=== PATIENT | female | born 1975 | race African-American/Black ===

== ENCOUNTER 2016-09-21 05:21 | Inpatient (IN) | payer SELFPAY ==
[2016-09-21] VITALS (16 sets, daily range): BP systolic 133–190; BP diastolic 72–108
[~2016-09-21] VITALS: Ht 157.5 cm; Wt 78.0 kg
[~2016-09-21 05:21] MED LIST: PROAIR HFA8.5 GM INH
[2016-09-21] MEDS ORDERED: ASPIRIN 81 MG TAB.CHEW PO ONE (07:00)
--- NOTE | 2016-09-21 07:13 | PHYS DOC ---
Past Medical History Past Medical History: Hypertension Past Surgical History: Alcohol Use: Occasionally Drug Use: None Adult General Chief Complaint Chief Complaint: COUGH HPI HPI Patient is a 41 year old female who presents with complaint of chest pain and high blood pressure. Patient states that she has been having chest pains over the past 2 weeks. The patient was seen in the emergency department on August and treated for uncontrolled high blood pressure. Patient states that she recently moved to this area from [place] and she has been working on getting back on her blood pressure medication. Patient states that she has not been able to fill her prescription due to lack of money. Patient states that her pain is substernal and pressure-like. On my examination, the patient rated her pain as 7 out of 10. Patient has not taken any medications to help with her symptoms. Patient denies associated fever that states that she has been having cough. Patient states that the cough has been present over the past 2 weeks. Denies nausea or vomiting. Review of Systems Review of Systems Constitutional: Denies fever or chills [] Eyes: Denies change in visual acuity, redness, or eye pain [] HENT: Denies nasal congestion or sore throat [] Respiratory: Cough, shortness of breath [] Cardiovascular: Chest pain, denies edema [] GI: Denies abdominal pain, nausea, vomiting, bloody stools or diarrhea [] : Denies dysuria or hematuria [] Musculoskeletal: Denies back pain or joint pain [] Integument: Denies rash or skin lesions [] Neurologic: Denies headache, focal weakness or sensory changes [] Endocrine: Denies polyuria or polydipsia [] Current Medications Current Medications Current Medications Medications (Trade) Dose Ordered Sig/Hernan Start Time Stop Time Status Last Admin Dose Admin Acetaminophen (Tylenol) 650 mg PRN Q4HRS PRN 09/21/16 08:00 09/22/16 07:59 Aspirin 324 mg 324 mg 1X ONCE 09/21/16 07:00 09/21/16 07:05 DC 09/21/16 07:42 324 MG Fentanyl Citrate 50 mcg 50 mcg PRN Q2HR PRN 09/21/16 08:00 09/22/16 07:59 Nitroglycerin/ Dextrose (Nitroglycerin Drip) 250 ml @ As Directed STK-MED ONCE 09/21/16 07:35 09/21/16 07:36 DC Ondansetron HCl (Zofran) 4 mg PRN Q8HRS PRN 09/21/16 08:00 09/22/16 07:59 Sodium Chloride (Iv Sodium Chloride 0.9% 1000ml Bag) 1,000 ml @ 0 mls/hr Q0M 09/21/16 07:47 09/22/16 07:46 Allergies Allergies Allergies Coded Allergies Type Severity Reaction Last Updated Verified No Known Drug Allergies 08/22/16 No Physical Exam Physical Exam Constitutional: Alert, afebrile, appears in mild discomfort. [] HENT: Normocephalic, atraumatic, bilateral external ears normal, oropharynx moist, no oral exudates, nose normal. [] Eyes: PERRLA, EOMI, conjunctiva normal, no discharge. [] Neck: Normal range of motion, no tenderness, supple, no stridor. [] Cardiovascular: Tachycardia, regular rhythm, no murmur [] Lungs & Thorax: Mildly restricted air movement bilaterally, rales bilaterally, no wheezes [] Abdomen: Bowel sounds normal, soft, no tenderness, no masses, no pulsatile masses. [] Skin: Warm, dry, no erythema, no rash. [] Back: No tenderness, no CVA tenderness. [] Extremities: No tenderness, no cyanosis, no clubbing, ROM intact, no edema. [] Neurologic: Alert and oriented X 3, normal motor function, normal sensory function, no focal deficits noted. [] Current Patient Data Vital Signs Vital Signs Date Time Temp Pulse Resp B/P Pulse Ox O2 Delivery O2 Flow Rate FiO2 09/21/16 06:40 98.3 98 20 210/114 100 Room Air 98.3 Lab Values Laboratory Tests Test 09/21/16 06:30 09/21/16 07:15 09/21/16 07:33 White Blood Count 8.3x10^3/uL (4.0-11.0) Red Blood Count 3.36x10^6/uL (3.50-5.40) L Hemoglobin 7.6g/dL (12.0-15.5) L Hematocrit 23.4% (36.0-47.0) L Mean Corpuscular Volume 70fL (79-100) L Mean Corpuscular Hemoglobin 23pg (25-35) L Mean Corpuscular Hemoglobin Concent 33g/dL (31-37) Red Cell Distribution Width 20.1% (11.5-14.5) H Platelet Count 258x10^3/uL (140-400) Neutrophils (%) (Auto) 61% (31-73) Lymphocytes (%) (Auto) 25% (24-48) Monocytes (%) (Auto) 10% (0-9) H Eosinophils (%) (Auto) 4% (0-3) H Basophils (%) (Auto) 1% (0-3) Neutrophils # (Auto) 5.1x10^3uL (1.8-7.7) Lymphocytes # (Auto) 2.1x10^3/uL (1.0-4.8) Monocytes # (Auto) 0.8x10^3/uL (0.0-1.1) Eosinophils # (Auto) 0.3x10^3/uL (0.0-0.7) Basophils # (Auto) 0.0x10^3/uL (0.0-0.2) Platelet Estimate Pending Sodium Level 138mmol/L (136-145) Potassium Level 3.8mmol/L (3.5-5.1) Chloride Level 104mmol/L (98-107) Carbon Dioxide Level 25mmol/L (21-32) Anion Gap 9 (6-14) Blood Urea Nitrogen 18mg/dL (7-20) Creatinine 1.1mg/dL (0.6-1.0) H Estimated GFR (Cockcroft-Gault) 66.9 Glucose Level 105mg/dL (70-99) H Calcium Level 9.3mg/dL (8.5-10.1) Magnesium Level 2.0mg/dL (1.8-2.4) Total Bilirubin 0.3mg/dL (0.2-1.0) Direct Bilirubin 0.1mg/dL (0.0-0.2) Aspartate Amino Transferase (AST) 27U/L (15-37) Alanine Aminotransferase (ALT) 27U/L (14-59) Alkaline Phosphatase 52U/L (46-116) Creatine Kinase 89U/L (26-192) Creatine Kinase MB (Mass) 0.9ng/mL (0.0-3.6) Creatine Kinase MB Relative Index 1.0% (0-4) Troponin I Quantitative 0.309ng/mL (0.000-0.055) FN-Klg-X-Type Natriuretic Peptide 2520pg/mL (0-124) H Total Protein 7.5g/dL (6.4-8.2) Albumin 3.3g/dL (3.4-5.0) L POC Urine HCG, Qualitative Hcg negative (Negative) Hcg negative (Negative) Laboratory Tests 09/21/16 06:30 Laboratory Tests 09/21/16 06:30 EKG EKG Interpreted by me: Heart rate 95, sinus rhythm, prolonged QT interval, T-wave inversions in the lateral leads and in V4 through V6, voltage criteria for left ventricular hypertrophy, no acute ST elevations or depressions [] Radiology/Procedures Radiology/Procedures [facility] [address] [place] [address] IMAGING REPORT Signed PATIENT: LUCIANO KATE ACCOUNT: [id number] : 1975 LOCATION: ER AGE: 41 SEX: F EXAM STATUS: REG ER ORD. PHYSICIAN: NATHANIEL WHEATLEY MD REASON: chest pain PROCEDURE: PORTABLE CHEST 1V Single view chest History:chest pain . An AP view of the chest is submitted. Comparison: 08/22/2016. Findings: There is no significant infiltrate, pleural effusion, or pneumothorax. There is again mild perihilar opacity. The pericardial cardiac silhouette is within normal limits in size. The trachea is in the midline. No acute osseous abnormality is identified. Impression: No acute abnormality is identified. There is again mild perihilar opacity which can be associated with atypical or viral infectious etiologies or reactive airway disease. DICTATED and SIGNED BY: REJI VU MD DATE: 09/21/16 0743 CC: NATHANIEL WHEATLEY MD; NO PCP ~ [] Course & Med Decision Making Course & Med Decision Making Pertinent Labs and Imaging studies reviewed. (See chart for details) Patient was started on a nitroglycerin drip and given oral aspirin in the emergency department due to chest pain and critically elevated blood pressure. Patient found to have elevated troponin which is likely due to malignant hypertension, however acute coronary syndrome cannot be ruled out at this time. The patient will be admitted for further care and evaluation. I spoke with Dr. Ricardo who accepted care patient in hospital. A consult was placed to Dr. Sethi to follow with patient in hospital. Critical care time excluding procedures: 40 minutes Dragon Disclaimer Dragon Disclaimer This electronic medical record was generated, in whole or in part, using a voice recognition dictation system. Departure Departure Impression: Primary Impression: Malignant hypertension Additional Impressions: Acute coronary syndrome Noncompliance with medications Microcytic anemia Disposition: ADMITTED INPATIENT Admitting Physician: Salomón Ricardo Condition: GUARDED Referrals: NO PCP (PCP) Problem Qualifiers NATHANIEL WHEATLEY MD Sep 21, 2016 07:13
[2016-09-21 07:19] LABS: BASO % 1 % (0-3); EOS % 4 % (0-3); HEMATOCRIT 23.4 % (36.0-47.0); HEMOGLOBIN 7.6 g/dL (12.0-15.5); LYMPH # 2.1 x10^3/uL (1.0-4.8); LYMPH % 25 % (24-48); MEAN CORPUSCULAR HEMOGLOBIN 23 pg (25-35); MEAN CORPUSCULAR HGB CONC 33 g/dL (31-37); MEAN CORPUSCULAR VOLUME 70 fL (79-100); MONO % 10 % (0-9); NEUT % 61 % (31-73); PLATELET COUNT 258 x10^3/uL (140-400); RED BLOOD COUNT 3.36 x10^6/uL (3.50-5.40); RED CELL DISTRIBUTION WIDTH 20.1 % (11.5-14.5); WHITE BLOOD COUNT 8.3 x10^3/uL (4.0-11.0)
[2016-09-21 07:29] LABS: CALCIUM 9.3 mg/dL (8.5-10.1); CREATININE 1.1 mg/dL (0.6-1.0); GFR 66.9; POTASSIUM 3.8 mmol/L (3.5-5.1)
[2016-09-21] MEDS ORDERED: NITROGLYCERIN PREMIX 250 ML IV ONE (07:35)
[2016-09-21 07:38] LABS: ALBUMIN 3.3 g/dL (3.4-5.0); DIRECT BILIRUBIN 0.1 mg/dL (0.0-0.2); TOTAL BILIRUBIN 0.3 mg/dL (0.2-1.0); TOTAL PROTEIN 7.5 g/dL (6.4-8.2)
[2016-09-21 07:46] LABS: CKMB MASS 0.9 ng/mL (0.0-3.6)
[2016-09-21] MEDS ORDERED: IV NORMAL SALINE 1000ML BAG 1,000 ML IV SCH (07:47)
[2016-09-21] MEDS: NITROGLYCERIN PREMIX 250 ML IV PRN ×2 (07:47→08:30)
--- NOTE | 2016-09-21 07:47 | RAD ---
Single view chest History:chest pain . An AP view of the chest is submitted. Comparison: 08/22/2016. Findings: There is no significant infiltrate, pleural effusion, or pneumothorax. There is again mild perihilar opacity. The pericardial cardiac silhouette is within normal limits in size. The trachea is in the midline. No acute osseous abnormality is identified. Impression: No acute abnormality is identified. There is again mild perihilar opacity which can be associated with atypical or viral infectious etiologies or reactive airway disease.
[2016-09-21] MEDS ORDERED: ACETAMINOPHEN 325 MG TABLET. PO PRN (08:00)
[2016-09-21 08:03] LABS: BILIRUBIN,URINE NEGATIVE (NEG); GLUCOSE,URINE NEGATIVE (NEG); NITRITE,URINE NEGATIVE (NEG); PROTEIN,URINE NEGATIVE (NEG-TRACE); UROBILINOGEN,URINE 0.2 mg/dL (0.2 mg/dL)
--- NOTE | 2016-09-21 08:08 | ACF ---
Admit Criteria Forms Admit Criteria Forms Admit Criteria Forms CHEST PAIN Clinical Indications for Admission to Inpatient Care (Place 'X' for any and all applicable criteria): Admission is indicated for chest pain and ANY ONE of the following(1)(2)(3)(4)(5 ): [X]I. Angina with acute coronary syndrome (Also use Myocardial Infarction or Angina guideline) [ ]II. Hemodynamic instability [ ]III. Angina needing acute intervention as indicated by ALL of the following( 11)(12): [ ]a) Unstable angina is present as indicated by angina that is ANY ONE of the following: [ ]i) New onset [ ]ii) Nocturnal [ ]iii) Prolonged at rest [ ]iv) Progressive [ ]b) Angina warrants acute intervention as indicated by ANY ONE of the following: [ ]i) Recurrent angina (e.g, not responding as previously to treatment) [ ]ii) Angina at rest or with low-level activities despite initial medical therapy [ ]iii) New or presumably new ST-segment depression on ECG [ ]iv) Signs or symptoms of heart failure (eg, dyspnea, pulmonary edema) [ ]v) New or worsening mitral regurgitation [ ]vi) Hemodynamic instability [ ]vii) Dangerous arrhythmia (eg, sustained ventricular tachycardia) [ ]viii) History of percutaneous coronary intervention within 6 months [ ]ix) History of coronary artery bypass graft surgery [ ]x) AKILAH risk score of 2 or greater[A] [ ]xi) History of Diabetes(14) [ ]xii) High-risk cardiac ischemia findings on noninvasive testing (e.g, echocardiogram, treadmill testing, nuclear scan) [ ]xiii) Chronic renal insufficiency (ie, estimated GFR less than 60 mL/min/1.732m) [ ]xiv) Left ventricular ejection fraction less than 40% [ ]IV. Evidence of WI (eg, cardiac biomarkers positive, ST-segment elevation on ECG) also use Myocardial Infarction Criteria Form. [ ]V. Pulmonary edema [ ]. Respiratory distress [ ]VII. Chest pain indicative of serious diagnosis other than coronary artery disease (eg, aortic dissection) [ ]VIII. Contraindications and/or Inappropriate clinical situations for Observational Care in patients with Chest Pain, when ANY ONE of the following is required: [ ]a) Patient with risk factor for pulmonary embolism, acute coronary syndrome and myocardial infarction (18) [ ]b) Patient with Pulmonary embolism require an average LOS of 4.3 days, therefore emergency department observation management is inappropriate 18,23 [ ]c) Painful condition/s in the elderly, have the highest rate of recidivism after emergency department observation management (10.8%) 20,21,22 [ ]d) Elevated cardiac biomarker requires intensive and exhaustive care (19) [ ]IX. General contraindications and/or Inappropriate clinical situations for Observational Care in patients with Chest Pain, when ANY ONE of the following is required: [ ]a) Prediction of prolongation of LOS based on ANY ONE of the following may be considered as a contraindication for observational care 2, 3, 4, 5, 6, 7, 8, 9, 10, 11 [ ]i) Age > 65 yrs. [ ]ii) Patient arriving by ambulance [ ]iii) Patient with high acuity [ ]iv) Patient requiring vital sign monitoring [ ]v) Patient on IV medication [ ]b) Systolic blood pressures 180mmHg 3,12 [ ]c) Patient with altered mental status including delirium and other alteration of consciousness, (3) [ ]d) Patient whose discharge disposition will be to a alf home or rehabilitation home should not be managed in Emergency Department Observation Unit. CMS rule requires 3 days hospital stay before such placement. 3,13 [ ]e) Patient with failure to thrive due to broad array of etiologies 3,16,17 [ ]f) Inability to ambulate 3,14 Extended stay beyond goal length of stay may be needed for (1)(28): [ ]a) Specific condition diagnosed after evaluation (eg, pulmonary embolism, aortic dissection) [ ]b) Unstable angina [ ]c) Continued suspicion of acute coronary syndrome with inability to complete needed cardiac evaluation (eg, patient clinically unable to undergo stress testing) [ ]d) Myocardial infarction (Contents from ANGINA and CHEST PAIN clinical indications for admission to inpatient care have been integrated in this form) The original [employer] content created by [employer] has been revised. The portions of the content which have been revised are identified through the use of italic text or in bold, and [facility] [employer] has neither reviewed nor approved the modified material. All other unmodified content is copyright [employer]. Please see references footnoted in the original [employer] edition 2016 LOUIS HAZEL Sep 21, 2016 08:08
[2016-09-21 08:22] LABS: BACTERIA,URINE MANY /HPF (0-FEW); RBC,URINE 0 /HPF (0-2); SQUAMOUS EPITHELIAL CELL,UR FEW /LPF
[2016-09-21] MEDS ORDERED: LABETALOL 20 MG/4 ML DISP.SYRIN. IVP ONE (10:00)
[2016-09-21 10:14] LABS: ANISOCYTOSIS PRESENT; HYPOCHROMIA PRESENT; MICROCYTOSIS PRESENT; PLT ESTIMATE ADEQUATE (ADEQUATE); POIKILOCYTOSIS PRESENT; TARGET CELLS PRESENT
--- NOTE | 2016-09-21 11:01 | PDOC2 ---
ASHLEY PATEL TEXTILE CONSERVATOR 09/21/16 1101: CARDIAC CONSULT DATE OF CONSULT Date of Consult DATE: 09/21/16 TIME: 10:47 REASON FOR CONSULT Reason for Consult: malignant hypertension HISTORY OF PRESENT ILLNESS HISTORY OF PRESENT ILLNESS Ms Bashir is a 41 year old female with a history of hypertension, heart failure and anemia. She recently moved here from [place] and reports having been off her antihypertensives for quite a long time due to inability to afford them. She complains of a cough over the last two weeks but denies fever or chills. She complains of chest discomfort with cough and abdominal discomfort with cough as well. she was seen in the hospital in August for hypertension but reports she was unable to afford medications so did not fill Rx. Blood pressure today 220/133 mmHg. She denies any neurological symptoms or chest discomfort at rest. . PAST MEDICAL HISTORY Past Medical History hypertension, heart failure, dysmenorrhea, anemia PAST SURGICAL HISTORY Past Surgical History: FAMILY HISTORY Family History CHF in her father SOCIAL HISTORY Social History 1 ppd smoker, denies ETOH or illicit drugs CURRENT MEDICATIONS CURRENT MEDICATIONS Current Medications Medications (Trade) Dose Ordered Sig/Hernan Route PRN Reason Start Time Stop Time Status Last Admin Dose Admin Aspirin 324 mg 324 mg 1X ONCE PO 09/21/16 07:00 09/21/16 07:05 DC 09/21/16 07:42 Nitroglycerin/ Dextrose (Nitroglycerin Drip) 250 ml @ 0 mls/hr CONT PRN IV SEE I/O RECORD 09/21/16 07:00 09/21/16 08:30 Labetalol HCl (Normodyne) 20 mg 1X ONCE IVP 09/21/16 10:00 09/21/16 10:04 DC 09/21/16 10:11 ALLERGIES ALLERGIES: Coded Allergies: No Known Drug Allergies (Unverified , 08/22/16) ROS Review of System as per HPI or negative PHYSICAL EXAM General: Alert, Oriented X3, Cooperative, No acute distress HEENT: Atraumatic, EOMI Lungs: Other (decreased bases bilaterally with occ crackle) Heart: Regular rate, Normal S1, Normal S2, Other Abdomen: Normal bowel sounds, Soft, No tenderness Extremities: No cyanosis, No edema, Normal pulses Neuro: Normal speech, Strength at 5/5 X4 ext Psych/Mental Status: Mental status NL, Mood NL VITALS VITALS Vital Signs Date Time Temp Pulse Resp B/P Pulse Ox O2 Delivery O2 Flow Rate FiO2 09/21/16 10:11 90 212/116 09/21/16 08:15 24 100 Room Air 09/21/16 06:40 98.3 98.3 LABS Lab: Laboratory Tests Test 09/21/16 06:30 09/21/16 07:10 09/21/16 07:15 09/21/16 07:33 White Blood Count 8.3x10^3/uL (4.0-11.0) Red Blood Count 3.36x10^6/uL (3.50-5.40) Hemoglobin 7.6g/dL (12.0-15.5) Hematocrit 23.4% (36.0-47.0) Mean Corpuscular Volume 70fL (79-100) Mean Corpuscular Hemoglobin 23pg (25-35) Mean Corpuscular Hemoglobin Concent 33g/dL (31-37) Red Cell Distribution Width 20.1% (11.5-14.5) Platelet Count 258x10^3/uL (140-400) Neutrophils (%) (Auto) 61% (31-73) Lymphocytes (%) (Auto) 25% (24-48) Monocytes (%) (Auto) 10% (0-9) Eosinophils (%) (Auto) 4% (0-3) Basophils (%) (Auto) 1% (0-3) Neutrophils # (Auto) 5.1x10^3uL (1.8-7.7) Lymphocytes # (Auto) 2.1x10^3/uL (1.0-4.8) Monocytes # (Auto) 0.8x10^3/uL (0.0-1.1) Eosinophils # (Auto) 0.3x10^3/uL (0.0-0.7) Basophils # (Auto) 0.0x10^3/uL (0.0-0.2) Platelet Estimate Adequate (ADEQUATE) Hypochromasia Present Poikilocytosis Present Anisocytosis Present Microcytosis Present Target Cells Present Sodium Level 138mmol/L (136-145) Potassium Level 3.8mmol/L (3.5-5.1) Chloride Level 104mmol/L (98-107) Carbon Dioxide Level 25mmol/L (21-32) Anion Gap 9 (6-14) Blood Urea Nitrogen 18mg/dL (7-20) Creatinine 1.1mg/dL (0.6-1.0) Estimated GFR (Cockcroft-Gault) 66.9 Glucose Level 105mg/dL (70-99) Calcium Level 9.3mg/dL (8.5-10.1) Magnesium Level 2.0mg/dL (1.8-2.4) Total Bilirubin 0.3mg/dL (0.2-1.0) Direct Bilirubin 0.1mg/dL (0.0-0.2) Aspartate Amino Transf (AST/SGOT) 27U/L (15-37) Alanine Aminotransferase (ALT/SGPT) 27U/L (14-59) Alkaline Phosphatase 52U/L (46-116) Creatine Kinase 89U/L (26-192) Creatine Kinase MB (Mass) 0.9ng/mL (0.0-3.6) Creatine Kinase MB Relative Index 1.0% (0-4) Troponin I Quantitative 0.309ng/mL (0.000-0.055) RW-Oxo-X-Type Natriuretic Peptide 2520pg/mL (0-124) Total Protein 7.5g/dL (6.4-8.2) Albumin 3.3g/dL (3.4-5.0) Urine Collection Type Unknown Urine Color Yellow Urine Clarity Clear Urine pH 6.0 Urine Specific Holcomb 1.020 Urine Protein Negativemg/dL (NEG-TRACE) Urine Glucose (UA) Negativemg/dL (NEG) Urine Ketones (Stick) Negativemg/dL (NEG) Urine Blood Negative (NEG) Urine Nitrite Negative (NEG) Urine Bilirubin Negative (NEG) Urine Urobilinogen Dipstick 0.2mg/dL (0.2 mg/dL) Urine Leukocyte Esterase Small (NEG) Urine RBC 0/HPF (0-2) Urine WBC 5-10/HPF (0-4) Urine Squamous Epithelial Cells Few/LPF Urine Bacteria Many/HPF (0-FEW) Bedside Urine HCG, Qualitative Hcg negative (Negative) Hcg negative (Negative) IMAGES IMAGES CXR - Impression: No acute abnormality is identified. There is again mild perihilar opacity which can be associated with atypical or viral infectious etiologies or reactive airway disease. EKG - sinus rhythm, LVH by voltage, non specific changes ASSESSMENT/PLAN ASSESSMENT/PLAN 1. accelerated hypertension - labetalol x 1 on NTG, add Coreg and HCTZ. Consider lisinopril if pressure remains elevated. Check echocardiogram. Consider renal arterial duplex for CÉSAR. 2. chest pain c/w musculoskeletal secondary to URI 3. elevated trop - no acute EKG changes. Likely secondary to accelerated hypertension. check echo and could consider MPI outpatient. 4. anemia - per PCP 5. tobaccoism - cessation encouraged 6. medical non compliance due to monetary issues. Attempt to keep antihypertensives to generic/affordable. refer to [facility] for outpatient follow up and med assistance. Problems: MARTITA HASSAN MD 09/21/16 1358: CARDIAC CONSULT ALLERGIES ALLERGIES: Coded Allergies: No Known Drug Allergies (Unverified , 08/22/16) ASSESSMENT/PLAN ASSESSMENT/PLAN Pt. seen and examined. 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 41 y.o woman with malignant HTN due to non-compliance and lack of insurance. on exam she has normal heart/lung tones. No bruits. Labs reviewed. Meds as noted above. If BP stable over next 12 hrs, then ok for DC. Problems: ASHLEY PATEL APRN Sep 21, 2016 11:01 MARTITA HASSAN MD Sep 21, 2016 13:58
[2016-09-21] MEDS ORDERED: NON FORMULARY ITEM (Albuterol Sulfate (Proair Hfa Inhaler) 1 PUFF) INH PRN (11:30)
[2016-09-21] MEDS ORDERED: ALBUTEROL SULFATE 2.5 MG/3 ML NEBU. NEB PRN (11:45)
[2016-09-21] MEDS: CARVEDILOL 6.25 MG TABLET PO SCH ×2 (12:05→19:01)
[2016-09-21] MEDS: HYDROCHLOROTHIAZIDE 25 MG TABLET PO SCH (12:05)
[2016-09-21] MEDS: AMLODIPINE BESYLATE 10 MG TABLET PO SCH (12:05)
--- NOTE | 2016-09-21 18:52 | EKG ---
[facility] [address] [place] [address] Test Date: 2016-09-21 Test Time: 06:46:48 Pat Name: LUCIANO KATE Department: Room: 205 1 Gender: F Shingle Trimmer: : 1975 Requested By: NATHANIEL WHEATLEY Order Number: [id number] Reading MD: Xiao Boles Measurements Intervals [place] Rate: 95 P: 63 MI: 140 QRS: 33 QRSD: 78 T: 121 QT: 404 QTc: 511 Interpretive Statements SINUS RHYTHM LEFT ATRIAL ABNORMALITY LVH WITH REPOLARIZATION ABNORMALITY PROLONGED QT ABNORMAL ECG RI6.01 No previous ECG available for comparison Electronically Signed On 09-22-2016 19:06:20 HELPER COORDINATOR by Xiao Boles
[2016-09-21] MEDS: FENTANYL PF 100 MCG/2 ML VIAL. IV PRN (20:30)
[2016-09-21] MEDS: ONDANSETRON PF 4 MG/2 ML VIAL. IV PRN (21:15)
[2016-09-21 23:35] LABS: % SAT IRON 6 % (15-34); IRON,SERUM 18 ug/dL (50-170)
[2016-09-22] VITALS (17 sets, daily range): BP systolic 136–186; BP diastolic 70–109
--- NOTE | 2016-09-22 05:25 | HP ---
ADMIT DATE: 09/21/2016 CHIEF COMPLAINT: Hypertension. HISTORY OF PRESENT ILLNESS: The patient is a pleasant 41-year-old female who quit taking her medications probably a year ago. She now presents with hypertensive urgency with pressures in the 200s. Her troponin is a little high. Discussed the case with the ER physician. We are going to admit her and get her pressures under control and consult Cardiology. PAST MEDICAL HISTORY: Noncompliance, hypertension. ALLERGIES: None. FAMILY HISTORY: Coronary artery disease. SOCIAL HISTORY: She does not drink, smoke or take drugs. MEDICATIONS: Reviewed, please refer to the MRAD. REVIEW OF SYSTEMS: GENERAL: No history of weight change, weakness or fevers. SKIN: No bruising, hair changes or rashes. EYES: No blurred, double or loss of vision. NOSE AND THROAT: No history of nosebleeds, hoarseness or sore throat. HEART: No history of palpitations, chest pain or shortness of breath on exertion. LUNGS: Denies cough, hemoptysis, wheezing or shortness of breath. GASTROINTESTINAL: Denies changes in appetite, nausea, vomiting, diarrhea or constipation. GENITOURINARY: No history of frequency, urgency, hesitancy or nocturia. NEUROLOGIC: Denies history of numbness, tingling, tremor or weakness. PSYCHIATRIC: No history of panic, anxiety or depression. ENDOCRINE: No history of heat or cold intolerance, polyuria or polydipsia. EXTREMITIES: Denies muscle weakness, joint pain, pain on walking or stiffness. PHYSICAL EXAMINATION: VITAL SIGNS: Temperature afebrile, pulse 74, respirations 18, blood pressure 221/133. GENERAL: She is alert, cooperative. HEART: Normal S1, S2. LUNGS: Clear. ABDOMEN: Soft, positive bowel sounds. EXTREMITIES: No edema. SKIN: No rashes. PSYCHIATRIC: She seems a little depressed. VASCULAR: Good capillary refill. ENDOCRINE: No thyromegaly. LYMPHATICS: No cervical nodes. HEMATOPOIETIC: No bruising. LABORATORY DATA: White count 8, hemoglobin 7, platelets 256. Electrolytes normal. Troponin 0.309. BNP 2520. ASSESSMENT AND PLAN: Acute on chronic systolic and diastolic heart failure probably secondary to noncompliance with severe accelerated hypertension with an elevated troponin and critical anemia. The patient is being admitted, we will consult Cardiology, consult Hematology/Oncology, IV antihypertensives, try to get her back on her home meds, low sodium diet. Physical therapy, occupational therapy. We will recheck her labs in the morning. ZURI FORREST DO DR: BHARTI/timo JOB#: [id number] / [id number]
[2016-09-22 06:00] LABS: BASO # 0.1 x10^3/uL (0.0-0.2); BASO % 1 % (0-3); EOS % 2 % (0-3); HEMATOCRIT 22.8 % (36.0-47.0); HEMOGLOBIN 7.2 g/dL (12.0-15.5); LYMPH # 2.4 x10^3/uL (1.0-4.8); LYMPH % 28 % (24-48); MEAN CORPUSCULAR HEMOGLOBIN 22 pg (25-35); MEAN CORPUSCULAR HGB CONC 32 g/dL (31-37); MEAN CORPUSCULAR VOLUME 71 fL (79-100); MONO % 7 % (0-9); NEUT % 62 % (31-73); PLATELET COUNT 264 x10^3/uL (140-400); RED BLOOD COUNT 3.23 x10^6/uL (3.50-5.40); RED CELL DISTRIBUTION WIDTH 20.6 % (11.5-14.5); WHITE BLOOD COUNT 8.6 x10^3/uL (4.0-11.0)
[2016-09-22] MEDS: NITROGLYCERIN PREMIX 250 ML IV PRN (06:11)
[2016-09-22 06:23] LABS: CALCIUM 9.1 mg/dL (8.5-10.1); CREATININE 1.2 mg/dL (0.6-1.0); GFR 60.5; POTASSIUM 3.9 mmol/L (3.5-5.1)
[2016-09-22] MEDS ORDERED: IRON SUCROSE COMPLEX 500 MG in IV NORMAL SALINE 250ML 250 ML IV ONE (06:30)
[2016-09-22] MEDS: FENTANYL PF 100 MCG/2 ML VIAL. IV PRN (06:37)
[2016-09-22] MEDS: ONDANSETRON PF 4 MG/2 ML VIAL. IV PRN (06:37)
[2016-09-22] MEDS: CARVEDILOL 6.25 MG TABLET PO SCH ×2 (08:45→17:39)
[2016-09-22] MEDS: AMLODIPINE BESYLATE 10 MG TABLET PO SCH (08:45)
[2016-09-22] MEDS: HYDROCHLOROTHIAZIDE 25 MG TABLET PO SCH (08:45)
[2016-09-22] MEDS ORDERED: FUROSEMIDE 40 MG TABLET PO SCH (09:00)
--- NOTE | 2016-09-22 11:44 | PDOC ---
PROGRESS NOTES Chief Complaint Chief Complaint 1. Accelerated hypertension: NTG gtt, add Coreg, amlodipine and lisinopril 2. Chest pain : likely due to above, Monitor troponin, cardiology following 3. Headaches: due to NTG, try Tylenol 4. Iron def anemia due to menorrhagia: on Venofer, oral iron at dc 5. Nicotine active 6. Financial constraints for medical insurance : SW consult, Prognosis guarded. labs reviewed, Vitals Vitals Vital Signs Date Time Temp Pulse Resp B/P Pulse Ox O2 Delivery O2 Flow Rate FiO2 09/22/16 08:45 88 166/93 09/22/16 08:00 Room Air 09/22/16 07:00 98.5 18 100 98.5 Physical Exam General: Alert, Oriented X3, Cooperative, No acute distress Heart: Regular rate, Normal S1, Normal S2, Other Lungs: Clear Abdomen: Normal bowel sounds, Soft, No tenderness Extremities: No cyanosis, No edema, Normal pulses Labs LABS Laboratory Tests Test 09/21/16 13:40 09/21/16 15:00 09/21/16 20:00 09/22/16 03:00 Troponin I Quantitative 0.352ng/mL (0.000-0.055) 0.313ng/mL (0.000-0.055) Iron Level 18ug/dL (50-170) Total Iron Binding Capacity 312ug/dL (250-450) Iron Saturation 6% (15-34) Ferritin 10ng/mL (8-252) White Blood Count 8.6x10^3/uL (4.0-11.0) Red Blood Count 3.23x10^6/uL (3.50-5.40) Hemoglobin 7.2g/dL (12.0-15.5) Hematocrit 22.8% (36.0-47.0) Mean Corpuscular Volume 71fL (79-100) Mean Corpuscular Hemoglobin 22pg (25-35) Mean Corpuscular Hemoglobin Concent 32g/dL (31-37) Red Cell Distribution Width 20.6% (11.5-14.5) Platelet Count 264x10^3/uL (140-400) Neutrophils (%) (Auto) 62% (31-73) Lymphocytes (%) (Auto) 28% (24-48) Monocytes (%) (Auto) 7% (0-9) Eosinophils (%) (Auto) 2% (0-3) Basophils (%) (Auto) 1% (0-3) Neutrophils # (Auto) 5.3x10^3uL (1.8-7.7) Lymphocytes # (Auto) 2.4x10^3/uL (1.0-4.8) Monocytes # (Auto) 0.6x10^3/uL (0.0-1.1) Eosinophils # (Auto) 0.2x10^3/uL (0.0-0.7) Basophils # (Auto) 0.1x10^3/uL (0.0-0.2) Sodium Level 139mmol/L (136-145) Potassium Level 3.9mmol/L (3.5-5.1) Chloride Level 103mmol/L (98-107) Carbon Dioxide Level 25mmol/L (21-32) Anion Gap 11 (6-14) Blood Urea Nitrogen 18mg/dL (7-20) Creatinine 1.2mg/dL (0.6-1.0) Estimated GFR (Cockcroft-Gault) 60.5 Glucose Level 58mg/dL (70-99) Calcium Level 9.1mg/dL (8.5-10.1) Assessment and Plan Assessmemt and Plan Problems Medical Problems: (1) ACS (acute coronary syndrome) Status: Acute (2) Acute coronary syndrome Status: Acute (3) Malignant hypertension Status: Acute (4) Malignant hypertension Status: Acute (5) Microcytic anemia Status: Acute (6) Noncompliance with medications Status: Acute Problems: Comment Review of Relevant I have reviewed the following items radha (where applicable) has been applied. Labs Laboratory Tests Test 09/21/16 06:30 09/21/16 07:10 09/21/16 07:15 09/21/16 07:33 White Blood Count 8.3x10^3/uL (4.0-11.0) Red Blood Count 3.36x10^6/uL (3.50-5.40) Hemoglobin 7.6g/dL (12.0-15.5) Hematocrit 23.4% (36.0-47.0) Mean Corpuscular Volume 70fL (79-100) Mean Corpuscular Hemoglobin 23pg (25-35) Mean Corpuscular Hemoglobin Concent 33g/dL (31-37) Red Cell Distribution Width 20.1% (11.5-14.5) Platelet Count 258x10^3/uL (140-400) Neutrophils (%) (Auto) 61% (31-73) Lymphocytes (%) (Auto) 25% (24-48) Monocytes (%) (Auto) 10% (0-9) Eosinophils (%) (Auto) 4% (0-3) Basophils (%) (Auto) 1% (0-3) Neutrophils # (Auto) 5.1x10^3uL (1.8-7.7) Lymphocytes # (Auto) 2.1x10^3/uL (1.0-4.8) Monocytes # (Auto) 0.8x10^3/uL (0.0-1.1) Eosinophils # (Auto) 0.3x10^3/uL (0.0-0.7) Basophils # (Auto) 0.0x10^3/uL (0.0-0.2) Platelet Estimate Adequate (ADEQUATE) Hypochromasia Present Poikilocytosis Present Anisocytosis Present Microcytosis Present Target Cells Present Sodium Level 138mmol/L (136-145) Potassium Level 3.8mmol/L (3.5-5.1) Chloride Level 104mmol/L (98-107) Carbon Dioxide Level 25mmol/L (21-32) Anion Gap 9 (6-14) Blood Urea Nitrogen 18mg/dL (7-20) Creatinine 1.1mg/dL (0.6-1.0) Estimated GFR (Cockcroft-Gault) 66.9 Glucose Level 105mg/dL (70-99) Calcium Level 9.3mg/dL (8.5-10.1) Magnesium Level 2.0mg/dL (1.8-2.4) Total Bilirubin 0.3mg/dL (0.2-1.0) Direct Bilirubin 0.1mg/dL (0.0-0.2) Aspartate Amino Transf (AST/SGOT) 27U/L (15-37) Alanine Aminotransferase (ALT/SGPT) 27U/L (14-59) Alkaline Phosphatase 52U/L (46-116) Creatine Kinase 89U/L (26-192) Creatine Kinase MB (Mass) 0.9ng/mL (0.0-3.6) Creatine Kinase MB Relative Index 1.0% (0-4) Troponin I Quantitative 0.309ng/mL (0.000-0.055) LW-Gqo-E-Type Natriuretic Peptide 2520pg/mL (0-124) Total Protein 7.5g/dL (6.4-8.2) Albumin 3.3g/dL (3.4-5.0) Urine Collection Type Unknown Urine Color Yellow Urine Clarity Clear Urine pH 6.0 Urine Specific [place] 1.020 Urine Protein Negativemg/dL (NEG-TRACE) Urine Glucose (UA) Negativemg/dL (NEG) Urine Ketones (Stick) Negativemg/dL (NEG) Urine Blood Negative (NEG) Urine Nitrite Negative (NEG) Urine Bilirubin Negative (NEG) Urine Urobilinogen Dipstick 0.2mg/dL (0.2 mg/dL) Urine Leukocyte Esterase Small (NEG) Urine RBC 0/HPF (0-2) Urine WBC 5-10/HPF (0-4) Urine Squamous Epithelial Cells Few/LPF Urine Bacteria Many/HPF (0-FEW) Bedside Urine HCG, Qualitative Hcg negative (Negative) Hcg negative (Negative) Test 09/21/16 13:40 09/21/16 15:00 09/21/16 20:00 09/22/16 03:00 Troponin I Quantitative 0.352ng/mL (0.000-0.055) 0.313ng/mL (0.000-0.055) Iron Level 18ug/dL (50-170) Total Iron Binding Capacity 312ug/dL (250-450) Iron Saturation 6% (15-34) Ferritin 10ng/mL (8-252) White Blood Count 8.6x10^3/uL (4.0-11.0) Red Blood Count 3.23x10^6/uL (3.50-5.40) Hemoglobin 7.2g/dL (12.0-15.5) Hematocrit 22.8% (36.0-47.0) Mean Corpuscular Volume 71fL (79-100) Mean Corpuscular Hemoglobin 22pg (25-35) Mean Corpuscular Hemoglobin Concent 32g/dL (31-37) Red Cell Distribution Width 20.6% (11.5-14.5) Platelet Count 264x10^3/uL (140-400) Neutrophils (%) (Auto) 62% (31-73) Lymphocytes (%) (Auto) 28% (24-48) Monocytes (%) (Auto) 7% (0-9) Eosinophils (%) (Auto) 2% (0-3) Basophils (%) (Auto) 1% (0-3) Neutrophils # (Auto) 5.3x10^3uL (1.8-7.7) Lymphocytes # (Auto) 2.4x10^3/uL (1.0-4.8) Monocytes # (Auto) 0.6x10^3/uL (0.0-1.1) Eosinophils # (Auto) 0.2x10^3/uL (0.0-0.7) Basophils # (Auto) 0.1x10^3/uL (0.0-0.2) Sodium Level 139mmol/L (136-145) Potassium Level 3.9mmol/L (3.5-5.1) Chloride Level 103mmol/L (98-107) Carbon Dioxide Level 25mmol/L (21-32) Anion Gap 11 (6-14) Blood Urea Nitrogen 18mg/dL (7-20) Creatinine 1.2mg/dL (0.6-1.0) Estimated GFR (Cockcroft-Gault) 60.5 Glucose Level 58mg/dL (70-99) Calcium Level 9.1mg/dL (8.5-10.1) Laboratory Tests Test 09/21/16 13:40 09/21/16 15:00 09/21/16 20:00 09/22/16 03:00 Troponin I Quantitative 0.352ng/mL (0.000-0.055) 0.313ng/mL (0.000-0.055) Iron Level 18ug/dL (50-170) Total Iron Binding Capacity 312ug/dL (250-450) Iron Saturation 6% (15-34) Ferritin 10ng/mL (8-252) White Blood Count 8.6x10^3/uL (4.0-11.0) Red Blood Count 3.23x10^6/uL (3.50-5.40) Hemoglobin 7.2g/dL (12.0-15.5) Hematocrit 22.8% (36.0-47.0) Mean Corpuscular Volume 71fL (79-100) Mean Corpuscular Hemoglobin 22pg (25-35) Mean Corpuscular Hemoglobin Concent 32g/dL (31-37) Red Cell Distribution Width 20.6% (11.5-14.5) Platelet Count 264x10^3/uL (140-400) Neutrophils (%) (Auto) 62% (31-73) Lymphocytes (%) (Auto) 28% (24-48) Monocytes (%) (Auto) 7% (0-9) Eosinophils (%) (Auto) 2% (0-3) Basophils (%) (Auto) 1% (0-3) Neutrophils # (Auto) 5.3x10^3uL (1.8-7.7) Lymphocytes # (Auto) 2.4x10^3/uL (1.0-4.8) Monocytes # (Auto) 0.6x10^3/uL (0.0-1.1) Eosinophils # (Auto) 0.2x10^3/uL (0.0-0.7) Basophils # (Auto) 0.1x10^3/uL (0.0-0.2) Sodium Level 139mmol/L (136-145) Potassium Level 3.9mmol/L (3.5-5.1) Chloride Level 103mmol/L (98-107) Carbon Dioxide Level 25mmol/L (21-32) Anion Gap 11 (6-14) Blood Urea Nitrogen 18mg/dL (7-20) Creatinine 1.2mg/dL (0.6-1.0) Estimated GFR (Cockcroft-Gault) 60.5 Glucose Level 58mg/dL (70-99) Calcium Level 9.1mg/dL (8.5-10.1) Medications Current Medications Aspirin 324 mg 324 mg 1X ONCE PO Last administered on 09/21/16 07:42; Start 09/21/16 at 07:00; Stop 09/21/16 at 07:05; Status DC Nitroglycerin/ Dextrose 250 ml @ 0 mls/hr CONT PRN IV SEE I/O RECORD Last administered on 09/22/16 06:11; Start 09/21/16 at 07:00 Nitroglycerin/ Dextrose (Nitroglycerin Drip) 250 ml @ As Directed STK-MED ONCE IV ; Start 09/21/16 at 07:35; Stop 09/21/16 at 07:36; Status DC Ondansetron HCl (Zofran) 4 mg PRN Q8HRS PRN IV NAUSEA/VOMITING Last administered on 09/22/16 06:37; Start 09/21/16 at 08:00; Stop 09/22/16 at 07:59 ; Status DC Fentanyl Citrate 50 mcg 50 mcg PRN Q2HR PRN IV PAIN Last administered on 06:37; Start 09/21/16 at 08:00; Stop 09/22/16 at 07:59; Status DC Sodium Chloride (Iv Sodium Chloride 0.9% 1000ml Bag) 1,000 ml @ 0 mls/hr Q0M IV ; Start 09/21/16 at 07:47; Stop 09/22/16 at 07:46; Status DC Acetaminophen (Tylenol) 650 mg PRN Q4HRS PRN PO FEVER Last administered on 09/22 02:18; Start 09/21/16 at 08:00; Stop 09/22/16 at 07:59; Status DC Labetalol HCl (Normodyne) 20 mg 1X ONCE IVP Last administered on 09/21/16 10: 11; Start 09/21/16 at 10:00; Stop 09/21/16 at 10:04; Status DC Hydrochlorothiazide (Hydrodiuril) 25 mg DAILY PO Last administered on 08:45; Start 09/21/16 at 12:00 Carvedilol (Coreg) 6.25 mg BIDWMEALS PO Last administered on 09/22/16 08:45; Start 09/21/16 at 12:00 Non-Formulary Medication 1 puff PRN Q6HRS PRN INH SHORTNESS OF BREATH; Start at 11:30; Status UNV Furosemide (Lasix) 40 mg DAILY PO ; Start 09/22/16 at 09:00; Stop 09/22/16 at 09 :00; Status DC Amlodipine Besylate (Norvasc) 10 mg DAILY PO Last administered on 09/22/16 08: 45; Start 09/21/16 at 12:00 Albuterol Sulfate 2.5 mg 2.5 mg PRN Q6HRS PRN NEB SHORTNESS OF BREATH; Start at 11:45 Iron Sucrose/ Sodium Chloride (Venofer/Iv Sodium Chloride 0.9% 250ml) 275 ml @ 78.571 mls/ hr 1X ONCE IV ; Start 09/22/16 at 06:30; Stop 09/22/16 at 09:59; Status DC Acetaminophen (Tylenol) 650 mg PRN Q6HRS PRN PO MILD PAIN / TEMP; Start at 10:45 Active Scripts Active Proair Hfa Inhaler (Albuterol Sulfate) 8.5 Gm Hfa.aer.ad 1 Puff INH PRN Q6HRS PRN Vitals/I & O Vital Sign - Last 24 Hours 09/21/16 09/21/16 09/21/16 09/21/16 12:00 12:05 12:05 12:30 Pulse 92 93 92 94 Resp 24 22 B/P 175/91 175/91 175/91 155/75 Pulse Ox 100 98 O2 Delivery Room Air Room Air 09/21/16 09/21/16 09/21/16 09/21/16 13:00 13:30 14:00 14:30 Pulse 92 91 88 90 Resp 26 B/P 169/86 165/88 170/79 164/67 Pulse Ox 100 100 100 100 O2 Delivery Room Air Room Air Room Air Room Air 09/21/16 09/21/16 09/21/16 09/21/16 15:00 15:30 16:00 17:14 Pulse 90 91 95 93 Resp 22 B/P 164/86 171/108 180/99 137/82 Pulse Ox 100 100 100 100 O2 Delivery Room Air Room Air Room Air Room Air 09/21/16 09/21/16 09/21/16 09/21/16 18:27 19:01 19:23 19:44 Temp 98.4 99.0 98.4 99.0 Pulse 90 90 92 Resp 18 20 B/P 158/100 158/100 190/106 Pulse Ox 96 O2 Delivery Room Air Room Air Room Air 09/21/16 09/21/16 09/21/16 09/21/16 20:00 20:11 20:26 20:30 Resp 20 B/P 165/97 171/96 O2 Delivery Room Air Room Air 09/21/16 09/21/16 09/21/16 09/21/16 20:41 20:56 21:11 21:41 B/P 175/103 181/108 154/85 157/80 09/21/16 09/21/16 09/21/16 09/21/16 22:11 22:26 22:44 22:56 B/P 153/73 135/72 180/105 165/94 09/21/16 09/21/16 09/21/16 09/21/16 23:11 23:24 23:26 23:56 Temp 98.4 98.4 Pulse 89 Resp 18 B/P 151/85 142/81 148/78 133/73 Pulse Ox 100 O2 Delivery Room Air 09/22/16 09/22/16 09/22/16 09/22/16 00:56 02:01 02:14 02:26 Temp 99.1 99.1 Pulse 91 Resp 20 B/P 136/72 171/96 186/109 175/94 Pulse Ox 95 O2 Delivery Room Air 09/22/16 09/22/16 09/22/16 09/22/16 02:41 02:56 03:11 03:26 B/P 174/98 151/74 170/83 144/82 09/22/16 09/22/16 09/22/16 09/22/16 03:41 03:56 04:11 04:26 B/P 165/93 171/84 172/76 158/70 09/22/16 09/22/16 09/22/16 09/22/16 04:41 07:00 08:00 08:45 Temp 98.5 98.5 Pulse 88 88 Resp 18 B/P 164/88 166/93 166/93 Pulse Ox 100 O2 Delivery Room Air Room Air 09/22/16 08:45 Pulse 88 B/P 166/93 MAGALY RIBERA MD Sep 22, 2016 11:44
[2016-09-22] MEDS ORDERED: LISINOPRIL 20 MG TABLET PO SCH (12:00)
--- NOTE | 2016-09-22 14:23 | PDOC ---
Provider Note Provider Note heme consult dictated- [id number] Iron def anemia due to menorrhagia- Venofer given today/ tomorrow Please DC on po iron, with food, which she will hopefully tolerate better and stay on as long as menorrhagia is occurring. When she obtains insurance, perhaps can f/u with PCP/ php mysql web developer for long term control of menorrhagia. Ok to DC from heme standpoint at any time. ABELARDO NICE DO Sep 22, 2016 14:23
[2016-09-22] MEDS: ACETAMINOPHEN 325 MG TABLET. PO PRN (21:36)
[2016-09-22] MEDS ORDERED: hydrALAZINE 20 MG/ML VIAL. IVP ONE (23:45)
--- NOTE | 2016-09-23 01:10 | CONS ---
DATE OF CONSULTATION: 09/22/2016 REFERRING PROVIDER: Dr. Quinn. REASON FOR CONSULTATION: Microcytic anemia. HISTORY OF PRESENT ILLNESS: The patient is a 41-year-old female who recently moved to the [facility]. She has a history of menorrhagia for several years with ongoing anemia. She recently bought oral iron and started taking it, but has had GI upset with it. Therefore, she is not taking it any longer. She presented with malignant hypertension and had been off blood pressure medications due to the inability to afford them. Her blood pressure is still actively being managed at this time. She has fatigue and craving for ice. She is still having ongoing headache. She denies any shortness of breath or chest pain. She does not have medical insurance right now and may not have close follow up until she is able to get something. That is why she stopped her blood pressure medications and is now admitted with malignant hypertension. PAST MEDICAL HISTORY: Hypertension, heart failure, menorrhagia, anemia. PAST SURGICAL HISTORY: . FAMILY HISTORY: Dad with heart disease. Mom from unknown causes. Sister with hypertension. SOCIAL HISTORY: Recently moved here with her son to live with her dad from [place]. She is smoking 1 pack per day and states that she is interested in quitting. She denies any alcohol or drug use. ALLERGIES: No known drug allergies. CURRENT MEDICATIONS: Tylenol, albuterol, Norvasc, Coreg, hydrochlorothiazide, lisinopril. REVIEW OF SYSTEMS: Ten point review of systems completed and unremarkable with the exception of that mentioned in the HPI. PHYSICAL EXAMINATION: VITAL SIGNS: Temperature 99.0, pulse 95, respiratory rate 18, blood pressure 149/90, 96% O2 on room air. GENERAL: She is alert and oriented. She is not in any distress. HEENT: Extraocular muscles are intact. Sclerae are without icterus. Mucous membranes are moist. CARDIOVASCULAR: Heart is regular in rhythm and rate. LUNGS: Clear to auscultation bilaterally. ABDOMEN: Soft, nontender. EXTREMITIES: No edema. NEUROLOGIC: No focal cranial nerve deficits. IMAGING/LABORATORY DATA: I added on iron studies which did return low, ferritin 10, serum iron 18, iron saturation 5. Her hemoglobin was 7.6, MCV 70. White blood cell count and platelet count are otherwise unremarkable. ASSESSMENT AND PLAN: The patient is a 41-year-old female with the following medical problems: 1. Iron deficiency anemia due to chronic blood loss from her menorrhagia. She has had an intolerance to oral iron. I am going to give her 1000 mg of IV iron while she is here, divided between today and early tomorrow morning. I recommend she be discharged on oral iron and take it with food if tolerated. She will likely need to remain on the oral iron as long as she is having ongoing menorrhagia. 2. Menorrhagia. When she obtains medical insurance, I encouraged her to establish with a PCP or gynecology to consider methods of decreasing her menstrual flow. 3. Uninsured status. I will consult social work to see if there are any resources for her for follow up and also to obtain insurance. Discussed with Dr. Quinn. ABELARDO NICE DO DR: Mirtha JOB#: [id number] / [id number] MARCO ANTONIO
[2016-09-23 02:53] VITALS: BP 165/83
[2016-09-23] MEDS ORDERED: IRON SUCROSE COMPLEX 500 MG in IV NORMAL SALINE 250ML 250 ML IV ONE (06:00)
[2016-09-23] MEDS: ACETAMINOPHEN 325 MG TABLET. PO PRN (06:03)
[2016-09-23 07:11] VITALS: BP 151/71
--- NOTE | 2016-09-23 07:58 | RAD ---
Deep Doppler renal ultrasound, 09/22/2016: History: Hypertension Duplex evaluation of the main renal arteries was performed including grayscale, color-flow and spectral Doppler analysis. No significant velocity acceleration is seen in either main renal artery to suggest significant stenosis. No parvus/tardus phenomena is seen. The right kidney measures 10.9 cm in length, while the left kidney measures 10.1 cm. IMPRESSION: No duplex evidence of significant renal artery stenosis.
[2016-09-23] MEDS: AMLODIPINE BESYLATE 10 MG TABLET PO SCH (08:41)
[2016-09-23] MEDS: HYDROCHLOROTHIAZIDE 25 MG TABLET PO SCH (08:41)
[2016-09-23] MEDS: CARVEDILOL 6.25 MG TABLET PO SCH (08:41)
[2016-09-23] MEDS ORDERED: LISINOPRIL 40 MG TABLET. PO SCH (09:00)
[2016-09-23] MEDS ORDERED: INFLUENZA VAX SCREEN BY RX. MC PRN (09:00)
--- NOTE | 2016-09-23 09:26 | PDOC ---
Subjective: Subjective: Onc f/u- YOVANNY related to menorrhagia Continued headaches this AM, not feeling well. Received venofer yesterday and today. Objective: Vital Signs: Vital Signs Date Time Temp Pulse Resp B/P Pulse Ox O2 Delivery O2 Flow Rate FiO2 09/23/16 08:42 92 151/71 09/23/16 07:11 98.5 20 98 Room Air 98.5 Physical Exam: Heart: Regular rate Extremities: No edema General: Alert, Oriented X3 Lungs: Normal air movement Psych/Mental Status: Mental status NL, Mood NL Labs/Imaging: Renal U/S- No Renal artery stenosis Assessment/Plan A/P: 1. Iron deficiency anemia due to menorrhagia, intolerance to po iron. 1000 mg IV iron given while here. If able to tolerate po iron WITH food, should remain on this as long as she has menorrhagia. 2. Menorrhagia. Consider OCP if able to establish with PCP as outpt. 3. Uninsured status. SW consulted to determine f/u resources, etc. Ok to DC from onc standpoint, CBC will improve over time. ABELARDO NICE DO Sep 23, 2016 09:26
[2016-09-23] MEDS ORDERED: NAPROXEN 500 MG TABLET PO PRN (09:30)
[2016-09-23] MEDS ORDERED: FLU VACC QUAD 2016-17 (36MOS+)/PF 0.5 ML SYRINGE. VAX IM ONE (10:00)
[2016-09-23] MEDS ORDERED: TRAMADOL 50 MG TABLET. PO PRN (10:45)
[2016-09-23 11:44] VITALS: BP 145/91
[2016-09-23] MEDS ORDERED: CARV6.252 PO (13:46)
[2016-09-23] MEDS ORDERED: HYDR25TA9 PO (13:46)
[2016-09-23] MEDS ORDERED: NAPR500T PO (13:46)
[2016-09-23] MEDS ORDERED: LISI40TA PO (13:46)
[2016-09-23] MEDS ORDERED: FERR325T72 PO (13:46)
[2016-09-23] MEDS ORDERED: AMLO10TA2 PO (13:46)
--- NOTE | 2016-09-23 13:49 | PDOC3 ---
Discharge Summary [facility] Date of Admission: Sep 21, 2016 Discharge Date: Sep 23, 2016 Admitting Diagnosis 1. Accelerated hypertension: NTG gtt, add Coreg, amlodipine and lisinopril 2. Chest pain : likely due to above, Monitor troponin, cardiology following 3. Headaches: due to NTG, try Tylenol 4. Iron def anemia due to menorrhagia: on Venofer, oral iron at dc 5. Nicotine active 6. Financial constraints for medical insurance : consult, Problems: Final Diagnosis Problems Medical Problems: (1) ACS (acute coronary syndrome) Status: Acute (2) Acute coronary syndrome Status: Acute (3) Malignant hypertension Status: Acute (4) Malignant hypertension Status: Acute (5) Microcytic anemia Status: Acute (6) Noncompliance with medications Status: Acute CONSULTS dr. Law Brief Hospital Course Ms. Bashir is a 41 old F, comes for htn, recieved NTG gtt, then po multiple meds. has headache post NTG. also was found anemia, with heavy menstrual peroid. got iv iron. dc home with coreg, hctz, lisinopril, amlodipine, iron po. naproxon prn for headache. dc time 35min General: Alert, Oriented X3, Cooperative, No acute distress Heart: Regular rate, Normal S1, Normal S2, Other Lungs: Clear Abdomen: Normal bowel sounds, Soft, No tenderness Extremities: No cyanosis, No edema, Normal pulses Problems: Disposition home CONDITION AT DISCHARGE: Improved Diet regular Scheduled Amlodipine Besylate (Amlodipine Besylate) 10 MG PO DAILY Carvedilol (Carvedilol) 6.25 MG PO BIDWMEALS Ferrous Sulfate (Feosol) 325 MG PO BID Hydrochlorothiazide (Hydrochlorothiazide Tablet ) 25 MG PO DAILY Lisinopril (Lisinopril) 40 MG PO DAILY Scheduled PRN Albuterol Sulfate (Proair Hfa Inhaler) 1 PUFF INH PRN Q6HRS PRN PRN SHORTNESS OF BREATH Naproxen (Naprosyn) 500 MG PO PRN BID PRN PRN PAIN Follow Up pcp in 2 weeks JUAN MONTOYA MD Sep 23, 2016 13:49
--- NOTE | 2016-09-23 16:28 | PDOC ---
CARDIO Progress Notes Date and Time Date of Service 09/23/16 Time of Evaluation 1340 Subjective Subjective: No Chest Pain, No shortness of breath, No Palpitations, Other (WARREN) Vitals Vitals Vital Signs Date Time Temp Pulse Resp B/P Pulse Ox O2 Delivery O2 Flow Rate FiO2 09/23/16 11:44 97.9 78 19 145/91 99 Room Air 97.9 Weight Weight [ ] Input and Output Intake and Output Intake and Output 09/23/16 07:00 Intake Total 490 ml Balance 490 ml Intake Oral 490 ml # Voids 5 Microbiology Micro Microbiology 09/21/16 Urine Culture - Final, Complete 09/21/16 Urine Culture Result 1 (BEATRIZ) - Final, Complete 09/21/16 Antimicrobic Susceptibility - Final, Complete Physical Exam HEENT: Neck Supple W Full Motion Chest: Symmetric LUNGS: Clear to Auscultation Heart: S1S2, RRR Abdomen: Normal Aortic Impulse, Soft N/T Extremities: No Edema, No Calf Tenderness Neurology: alert, oriented, follow commands Assessment Assessment 1. Accelerated hypertension 2. Chest pain 3. Tobaccoism 4. Non compliance secondary to monetary issues Recommendations BP much better controlled. May discharge from a cardiac standpoint. Patient to establish care with PCP within 1-2 weeks. Social work following for resource assistance ELI FULTON APRN Sep 23, 2016 16:28
[2016-09-23] MEDS ORDERED: FERROUS SULFATE 325 MG TABLET PO SCH (21:00)
== END 2016-09-23 16:30 | disposition home or self-care (01) | DRG 291 ==
LOC: ER 05:21 → ED HOLD 07:44 → 2 NORTH 17:24
PROVIDERS: ADMIT Internal Medicine; ATTEND Internal Medicine
DX: I13.0 Hypertensive heart and chronic kidney disease with heart failure and stage 1 through stage 4 chronic kidney disease, or unspecified chronic kidney disease (principal); I50.43 Acute on chronic combined systolic (congestive) and diastolic (congestive) heart failure; I24.9 Acute ischemic heart disease, unspecified; D50.0 Iron deficiency anemia secondary to blood loss (chronic); I16.0 Hypertensive urgency; R51 Headache; N92.0 Excessive and frequent menstruation with regular cycle; F17.210 Nicotine dependence, cigarettes, uncomplicated; J06.9 Acute upper respiratory infection, unspecified; J45.909 Unspecified asthma, uncomplicated; Z79.899 Other long term (current) drug therapy; Z79.82 Long term (current) use of aspirin; Z91.14 Patient's other noncompliance with medication regimen; Z91.19 Patient's noncompliance with other medical treatment and regimen; Z82.49 Family history of ischemic heart disease and other diseases of the circulatory system; N18.2 Chronic kidney disease, stage 2 (mild)
CPT/HCPCS: 36415; 71010; 80048; 80076; 81001; 81025; 82553; 82728; 83540; 83550; 83735; 83880; 84484; 85007; 85027; 86850; 86900; 86901; 87086; 87186; 90686; 93005; 93975; 99406; J0360; J1756; J2405; J3010; J3490; J7050; 99291-25; J7030

== ENCOUNTER 2016-12-25 09:29 | Emergency (ER) | payer SELFPAY ==
[~2016-12-25] VITALS: Ht 162.6 cm; Wt 72.6 kg
[2016-12-25 09:29] VITALS: BP 208/123
[~2016-12-25 09:29] MED LIST changes: +AMLO10TA2 PO; +CARV6.252 PO; +FERR325T72 PO; +HYDR25TA9 PO; +LISI40TA PO; +NAPR500T PO
[2016-12-25] MEDS ORDERED: CYCL10TA2 PO (10:41)
--- NOTE | 2016-12-25 10:41 | PHYS DOC ---
Past Medical History Past Medical History: Hypertension Past Surgical History: Alcohol Use: Occasionally Drug Use: None Adult General Chief Complaint Chief Complaint: BACK PAIN OR INJURY [facility] HPI Patient is a 41 year old female presents emergency department stating that she has having bilateral lower back pain for the last 3 days. She denies any injury or trauma. She states that she has increased pain when trying to ambulate. She states that she's been taken Tylenol and ibuprofen without relief. She is also been using warm moist packs to the back with no relief of pain. Patient does state she's had back issues in the past. Does have a history of high blood pressure is currently taking medications for her blood pressure. At this time her blood pressure is elevated. Review of Systems Review of Systems Constitutional: Denies fever or chills [] Eyes: Denies change in visual acuity, redness, or eye pain [] HENT: Denies nasal congestion or sore throat [] Respiratory: Denies cough or shortness of breath [] Cardiovascular: No additional information not addressed in HPI [] GI: Denies abdominal pain, nausea, vomiting, bloody stools or diarrhea [] : Denies dysuria or hematuria [] Musculoskeletal: lower back pain denies joint pain Integument: Denies rash or skin lesions [] Neurologic: Denies headache, focal weakness or sensory changes [] Endocrine: Denies polyuria or polydipsia [] Allergies Allergies Allergies Coded Allergies Type Severity Reaction Last Updated Verified No Known Drug Allergies 08/22/16 No Physical Exam Physical Exam Constitutional: Well developed, well nourished, no acute distress, non-toxic appearance. [] HENT: Normocephalic, atraumatic, bilateral external ears normal, oropharynx moist, no oral exudates, nose normal. [] Eyes: PERRLA, EOMI, conjunctiva normal, no discharge. [] Neck: Normal range of motion, no tenderness, supple, no stridor. [] Cardiovascular:Heart rate regular rhythm, no murmur [] Lungs & Thorax: Bilateral breath sounds clear to auscultation [] Skin: Warm, dry, no erythema, no rash. [] Back: bilateral lower back tenderness, Straight leg raises positive for increase discomfort Extremities: No tenderness, no cyanosis, no clubbing, ROM intact, no edema. [] Neurologic: Alert and oriented X 3, normal motor function, normal sensory function, no focal deficits noted. [] Psychologic: Affect normal, judgement normal, mood normal. [] Current Patient Data Vital Signs Vital Signs Date Time Temp Pulse Resp B/P (MAP) Pulse Ox O2 Delivery O2 Flow Rate FiO2 12/25/16 09:29 97.9 77 18 208/123 (151) 98 Room Air 97.9 EKG EKG [] Radiology/Procedures Radiology/Procedures [] Course & Med Decision Making Course & Med Decision Making Pertinent Labs and Imaging studies reviewed. (See chart for details) Patient will be provided with Flexeril here in the emergency department. Patient was instructed Flexeril will cause drowsiness do not take any be alert and oriented. She'll also be provided with provided with ibuprofen 800 mg. Recommended medications as prescribed. Also recommended patient to use ice packs on 20 minutes off 20 minutes several times a day. She'll be discharged home in stable condition. She was provided with signs and symptoms to return back to the emergency department. Dragon Disclaimer Dragon Disclaimer This electronic medical record was generated, in whole or in part, using a voice recognition dictation system. Departure Departure Impression: Primary Impression: Lower back pain Disposition: HOME, SELF-CARE Condition: STABLE Referrals: NO PCP (PCP) Patient Instructions: Back Pain, Adult, [id number] Additional Instructions: Activity as tolerated Medication as prescribed Flexeril will cause drowsiness do not take if you need to be alert and oriented Ibuprofen 800 mg every 8 hours with food, stop taking if upset stomach occurs Ice packs on 20 minutes and off 20 minutes several times a day Followup with primary care provider in 7-10 days Return to emergency department as needed for signs and symptoms that become worse. Scripts Cyclobenzaprine Hcl (CYCLOBENZAPRINE HCL) 10 Mg Tablet 10 MG PO TID, #30 TAB Prov: MICHELLE HADLEY APRN 12/25/16 MICHELLE HADLEY APRN December 25, 2016 10:41
[2016-12-25] MEDS ORDERED: IBUPROFEN 800 MG TABLET. PO ONE (11:30)
[2016-12-25] MEDS ORDERED: CYCLOBENZAPRINE 10 MG TABLET. PO ONE (11:30)
== END 2016-12-25 10:54 | disposition home or self-care (01) ==
LOC: ER 09:29
DX: M54.5 Low back pain (principal); I10 Essential (primary) hypertension
CPT/HCPCS: 99283

== ENCOUNTER 2017-06-20 16:51 | Emergency (ER) | payer SELFPAY ==
[~2017-06-20] VITALS: Ht 157.5 cm; Wt 59.0 kg
[~2017-06-20 16:51] MED LIST changes: +CYCL10TA2 PO
[2017-06-20] MEDS ORDERED: CYCLOBENZAPRINE 10 MG TABLET. PO ONE (17:45)
[2017-06-20] MEDS ORDERED: IBUPROFEN 600 MG TABLET. PO ONE (17:45)
[2017-06-20 18:22] LABS: BILIRUBIN,URINE NEGATIVE (NEG); GLUCOSE,URINE NEGATIVE (NEG); NITRITE,URINE POSITIVE (NEG); PH,URINE 5.5; PROTEIN,URINE NEGATIVE (NEG-TRACE); UROBILINOGEN,URINE 0.2 mg/dL (0.2 mg/dL)
[2017-06-20 18:41] LABS: BACTERIA,URINE MANY /HPF (0-FEW); RBC,URINE OCC /HPF (0-2); SQUAMOUS EPITHELIAL CELL,UR FEW /LPF
[2017-06-20] MEDS ORDERED: LISI40TA PO (19:27)
[2017-06-20] MEDS ORDERED: CYCL5TAB PO (19:27)
[2017-06-20] MEDS ORDERED: HYDR25TA9 PO (19:27)
--- NOTE | 2017-06-20 19:27 | PHYS DOC ---
Past Medical History Past Medical History: CHF, COPD, Hypertension Past Surgical History: Alcohol Use: Occasionally Drug Use: None Adult General Chief Complaint Chief Complaint: MULTIPLE COMPLAINTS HPI HPI Patient is a 42 year old female who presents with sore throat. She reports sore throat, fatigue, & body aches since this morning. She told the triage nurse that she has COPD & feels short of breath, but denies to me. She does not want a breathing treatment. She denies headache, cough, vomiting, diarrhea , chest pain, abdominal pain, dysuria. 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 She doesn't remember what she used to take, but chart indicates amlodipine, carvedilol, lisinopril, HCTZ. She denies any headache, vision changes, chest pain, shortness of breath, extremity numbness/weakness. She doesn't have a PCP. Review of Systems Review of Systems Constitutional: Denies fever or chills Eyes: Denies change in visual acuity HENT: Denies nasal congestion, reports sore throat Respiratory: Denies cough or shortness of breath Cardiovascular: Denies chest pain or edema GI: Denies abdominal pain, nausea, vomiting, or diarrhea : Denies dysuria or hematuria Musculoskeletal: Denies back pain or joint pain Integument: Denies rash Neurologic: Denies headache, focal weakness or sensory changes All other systems were reviewed and found to be within normal limits, except as documented in this note. Current Medications Current Medications Current Medications Medications (Trade) Dose Ordered Sig/[facility] Start Time Stop Time Status Last Admin Dose Admin Cyclobenzaprine HCl (Flexeril) 10 mg 1X ONCE 06/20/17 17:45 06/20/17 17:46 DC 06/20/17 18:11 10 MG Ibuprofen (Motrin) 600 mg 1X ONCE 06/20/17 17:45 06/20/17 17:46 DC 06/20/17 18:11 600 MG Allergies Allergies Allergies Coded Allergies Type Severity Reaction Last Updated Verified No Known Drug Allergies 08/22/16 No Physical Exam Physical Exam Constitutional: Well developed, well nourished, no acute distress, non-toxic appearance. HENT: Normocephalic, atraumatic, bilateral external ears normal, oropharynx moist, posterior oropharynx mild erythema without tonsillar enlargement/exudate , nose normal. Eyes: PERRLA, EOMI, conjunctiva normal, no discharge. Neck: supple, no stridor. no meningismus. Cardiovascular: RRR, no murmurs, no edema. Lungs & Thorax: LCTAB, no wheezing, no respiratory distress. Abdomen: soft, nontender, nondistended. Skin: Warm, dry, no erythema, no rash. Back: No tenderness. Extremities: No tenderness, no edema. Neurologic: Alert and oriented X 3, normal motor & sensory function, no focal deficits noted. Psychologic: Affect normal, judgement normal, mood normal. Current Patient Data Vital Signs Vital Signs Date Time Temp Pulse Resp B/P (MAP) Pulse Ox O2 Delivery O2 Flow Rate FiO2 06/20/17 19:30 92 18 189/95 (126) 99 Room Air 06/20/17 18:26 98.0 98.0 Lab Values Laboratory Tests Test 06/20/17 17:47 06/20/17 17:59 Group A Streptococcus Rapid Negative (NEGATIVE) Urine Collection Type Unknown Urine Color Yellow Urine Clarity Clear Urine pH 5.5 Urine Specific [place] 1.025 Urine Protein Negative mg/dL (NEG-TRACE) Urine Glucose (UA) Negative mg/dL (NEG) Urine Ketones (Stick) Negative mg/dL (NEG) Urine Blood Negative (NEG) Urine Nitrite Positive (NEG) Urine Bilirubin Negative (NEG) Urine Urobilinogen Dipstick 0.2 mg/dL (0.2 mg/dL) Urine Leukocyte Esterase Negative (NEG) Urine RBC Occ /HPF (0-2) Urine WBC 1-4 /HPF (0-4) Urine Squamous Epithelial Cells Few /LPF Urine Bacteria Many /HPF (0-FEW) POC Urine HCG, Qualitative Hcg negative (Negative) Microbiology 06/20/17 Urine Culture - Preliminary, Resulted 06/20/17 Urine Culture Result 1 (BEATRIZ) - Preliminary, Resulted EKG EKG [] Radiology/Procedures Radiology/Procedures [] Course & Med Decision Making Course & Med Decision Making Pertinent Labs and Imaging studies reviewed. (See chart for details) The patient presents with sore throat & found to have elevated blood pressure. Rapid strep was negative. She has asymptomatic hypertension. Discussed importance of [facility] control. Will write prescription for lisinopril & HCTZ , needs to f/u with PCP for blood pressure recheck & potentially further control. Recommend supportive care for URI symptoms/viral pharyngitis - rest, hydration, tylenol/ibuprofen for pain or fever. Come back for headache, chest pain, shortness of breath, focal neuro deficit, any otherwise worsening condition. Discharged home in stable condition. [] Dragon Disclaimer Dragon Disclaimer This electronic medical record was generated, in whole or in part, using a voice recognition dictation system. Departure Departure Impression: Primary Impression: Pharyngitis Additional Impression: Asymptomatic hypertension Disposition: 01 HOME, SELF-CARE Condition: STABLE Referrals: NO PCP (PCP) FALLON JOHNSON MD Patient Instructions: Hypertension, [id number], Viral and Bacterial Pharyngitis, [id number] Additional Instructions: You were seen in the emergency department today for sore throat. Her strep test was negative. This is likely caused by a virus and will get better without antibiotics. Please rest, drink fluids to stay hydrated, take Tylenol or ibuprofen for pain or fever. Your blood pressure was high today. It is important to take medication as prescribed. You were previously on 4 medications for blood pressure. We are restarting to today. You may need additional blood pressure medication to control her blood pressure for the long- term. It is very important to follow-up as soon as possible with a primary care physician for blood pressure recheck and additional management. Return to the emergency department for severe headache, severe chest pain or shortness of breath, numbness or weakness in arms or legs, any otherwise worsening condition. Scripts Lisinopril (LISINOPRIL) 40 Mg Tablet 40 MG PO DAILY for FOR HYPERTENSION, #15 TAB 0 Refills Prov: LUCAS WERNER MD 06/20/17 Hydrochlorothiazide (HYDROCHLOROTHIAZIDE TABLET ) 25 Mg Tablet 25 MG PO DAILY for DIURETIC, #15 TAB 0 Refills Prov: LUCAS WERNER MD 06/20/17 Cyclobenzaprine Hcl (CYCLOBENZAPRINE HCL) 5 Mg Tablet 1 TAB PO TID Y for MUSCLE SPASMS, #10 TAB Prov: LUCAS WERNER MD 06/20/17 Problem Qualifiers LUCAS WERNER MD Jun 20, 2017 19:27
[2017-06-20 19:30] VITALS: BP 189/95
[2017-06-21 09:49] LABS: NEGATIVE OBC STREP NEG; POSITIVE OBC STREP POS
== END 2017-06-20 19:34 | disposition home or self-care (01) ==
LOC: ER 16:51
DX: J02.9 Acute pharyngitis, unspecified (principal); I11.0 Hypertensive heart disease with heart failure; I50.9 Heart failure, unspecified; J44.9 Chronic obstructive pulmonary disease, unspecified; Z79.899 Other long term (current) drug therapy
CPT/HCPCS: 81001; 81025; 87070; 87086; 87186; 87880; 99284

== ENCOUNTER 2018-01-24 20:08 | Emergency (ER) | payer SELFPAY ==
[2018-01-24 20:40] LABS: BILIRUBIN,URINE NEGATIVE (NEG); CLARITY,URINE CLEAR; COLOR,URINE YELLOW; GLUCOSE,URINE NEGATIVE (NEG); NITRITE,URINE NEGATIVE (NEG); PH,URINE 6.5; PROTEIN,URINE NEGATIVE (NEG-TRACE)
[2018-01-24 20:50] LABS: AMORPHOUS SEDIMENT,UR PRESENT /HPF; BACTERIA,URINE 0 /HPF (0-FEW); RBC,URINE OCC /HPF (0-2); SQUAMOUS EPITHELIAL CELL,UR FEW /LPF
[2018-01-24 21:40] LABS: NEG OBC UR NEG; POS OBC UR POS; U PREG PATIENT NEGATIVE (NEG)
[2018-01-24 21:42] LABS: ADD MAN DIFF? NO
[2018-01-24 21:43] LABS: BASO % 0 % (0-3); EOS # 0.3 x10^3/uL (0.0-0.7); EOS % 2 % (0-3); HEMATOCRIT 33.8 % (36.0-47.0); HEMOGLOBIN 11.8 g/dL (12.0-15.5); LYMPH # 2.5 x10^3/uL (1.0-4.8); LYMPH % 18 % (24-48); MEAN CORPUSCULAR HEMOGLOBIN 28 pg (25-35); MEAN CORPUSCULAR HGB CONC 35 g/dL (31-37); MEAN CORPUSCULAR VOLUME 79 fL (79-100); MONO # 1.3 x10^3/uL (0.0-1.1); MONO % 9 % (0-9); NEUT # 9.6 x10^3uL (1.8-7.7); NEUT % 70 % (31-73); PLATELET COUNT 216 x10^3/uL (140-400); RED BLOOD COUNT 4.26 x10^6/uL (3.50-5.40); RED CELL DISTRIBUTION WIDTH 17.6 % (11.5-14.5); WHITE BLOOD COUNT 13.7 x10^3/uL (4.0-11.0)
[2018-01-24 21:56] LABS: ANION GAP 9 (6-14); BLOOD UREA NITROGEN 13 mg/dL (7-20); BUN/CREATININE RATIO 14 (6-20); CALCIUM 9.2 mg/dL (8.5-10.1); CARBON DIOXIDE 27 mmol/L (21-32); CHLORIDE 104 mmol/L (98-107); CREATININE 0.9 mg/dL (0.6-1.0); GFR 83.9; GLUCOSE 92 mg/dL (70-99); POTASSIUM 3.7 mmol/L (3.5-5.1); SODIUM 140 mmol/L (136-145)
[2018-01-24 22:01] LABS: ALBUMIN 3.4 g/dL (3.4-5.0); ALBUMIN/GLOBULIN RATIO 0.8 (1.0-1.7); ALK PHOS 158 U/L (46-116); ALT (SGPT) 21 U/L (14-59); AST (SGOT) 25 U/L (15-37); TOTAL BILIRUBIN 0.9 mg/dL (0.2-1.0); TOTAL PROTEIN 7.9 g/dL (6.4-8.2)
[2018-01-24] MEDS: IOHEXOL 300 MG/ML 100ML VIAL. IV (22:10)
[2018-01-24] MEDS ORDERED: CONTRAST GIVEN. MC (22:15)
[2018-01-24] MEDS: HYDROcodone/APAP 5/325MG 1 TAB TABLET PO (23:14)
== END 2018-01-24 23:15 | disposition home or self-care (01) ==
LOC: ER 23:15
DX: N83.201 Unspecified ovarian cyst, right side (principal); I11.0 Hypertensive heart disease with heart failure; I50.9 Heart failure, unspecified; J44.9 Chronic obstructive pulmonary disease, unspecified; Z79.891 Long term (current) use of opiate analgesic; Z79.899 Other long term (current) drug therapy
CPT/HCPCS: 36415; 74177; 80053; 81001; 81025; 85025; 99285-25; Q9967